=== PATIENT | male | born 1970 | race African-American/Black ===

== ENCOUNTER 2023-08-11 12:46 | Inpatient (IN) | payer OTHER ==
[2023-08-11 13:57] VITALS: BMI 22.3
[2023-08-11] MEDS ORDERED: MAG HYDROX/AL HYDROX/SIMETH 30 ML UNIT-DOSE CUP PO PRN (14:51)
[2023-08-11] MEDS ORDERED: BISMUTH SUBSALICYLATE 524 MG/30 ML PO PRN (14:51)
[2023-08-11] MEDS ORDERED: NALOXONE HCL (KLOXXADO) 8 MG SPRAY NS PRN (14:51)
[2023-08-11] MEDS ORDERED: IBUPROFEN 400 MG TABLET (FP) PO PRN (14:51)
[2023-08-11] MEDS ORDERED: DICYCLOMINE HCL 10 MG CAPSULE PO PRN (14:51)
[2023-08-11] MEDS ORDERED: ONDANSETRON *ODT* 4 MG TABLET SL PRN (14:51)
[2023-08-11] MEDS ORDERED: ACETAMINOPHEN 325 MG TABLET (FP) PO PRN (14:51)
[2023-08-11] MEDS ORDERED: BENZONATATE 200 MG CAPSULE PO PRN (14:51)
[2023-08-11] MEDS ORDERED: NALOXONE HCL 0.4 MG/ML VIAL IM PRN (14:51)
[2023-08-11] MEDS ORDERED: POLYETHYLENE GLYCOL (HEALTHYLAX) 3350 17 GM PACKET PO PRN (14:51)
[2023-08-11] MEDS ORDERED: IBUPROFEN 600 MG TABLET (FP) PO PRN (14:51)
[2023-08-11] MEDS ORDERED: guaiFENesin 600 MG TABLET.ER (FP) PO PRN (14:51)
[2023-08-11] MEDS ORDERED: LOPERAMIDE HCL 2 MG CAPSULE PO PRN (14:51)
[2023-08-11] MEDS ORDERED: MAGNESIUM HYDROX 2400MG/30ML ORAL SUSPENSION 30 ML CUP PO PRN (14:51)
[2023-08-11] MEDS ORDERED: BENZOCAINE/MENTHOL (CHLORASEPTIC ) LOZENGE MM PRN (14:51)
[2023-08-11] MEDS ORDERED: cloNIDine HCL 0.1 MG TABLET PO ONE (16:51)
[2023-08-11] MEDS ORDERED: cloNIDine HCL 0.1 MG TABLET ONE (16:56)
[2023-08-11] MEDS: hydrOXYzine PAMOATE 25 MG CAPSULE (FP) PO PRN (18:17)
[2023-08-11] MEDS: METHOCARBAMOL 500 MG TABLET PO PRN (18:17)
[2023-08-11] MEDS: ASPIRIN 81 MG CHEWABLE TABLETS PO SCH (18:17)
[2023-08-11] MEDS: PRENATAL VITAMINS W/ FOLIC ACID TABLET (FP) PO SCH (18:25)
[2023-08-11] MEDS: NICOTINE 14 MG/24 HOURS TOPICAL PATCH TD SCH (18:25)
[2023-08-11] MEDS: CARVEDILOL 25 MG TABLET (FP) PO SCH (22:25)
[2023-08-11] MEDS: THIAMINE HCL 100 MG TABLET (FP) PO SCH (22:25)
[2023-08-11] MEDS: MELATONIN 5 MG TABLETS PO SCH (22:25)
[2023-08-11] MEDS: ATORVASTATIN CA 80 MG TABLET (FP) PO SCH (22:25)
[2023-08-12 09:23] LABS: POTASSIUM 5.3 mmol/L (3.5-5.1)
[2023-08-12 09:27] LABS: HEMATOCRIT 36.4 % (35.4-49); HEMOGLOBIN 11.5 GM/dL (11.7-16.9); MCHC 31.7 g/dl (32.0-35.9); MEAN CELL VOLUME 88.4 fl (80-96); MEAN PLT VOLUME 8.6 fl (7.5-11.1); PLATELET COUNT 227 10^3/uL (134-434); RBC 4.11 M/mm3 (4.00-5.60); RDW 19.3 % (11.9-15.9); WHITE BLOOD COUNT 7.3 K/mm3 (4.0-10.0)
[2023-08-12 09:38] LABS: ALBUMIN 3.5 g/dl (3.4-5.0)
[2023-08-12 09:39] LABS: BLOOD UREA NITROGEN 14.4 mg/dL (7-18)
[2023-08-12 09:40] LABS: CALCIUM 9.3 mg/dL (8.5-10.1)
[2023-08-12 09:41] LABS: CREATININE 1.1 mg/dL (0.55-1.3)
[2023-08-12 09:44] LABS: BILIRUBIN,TOTAL 0.8 mg/dL (0.2-1)
[2023-08-12 09:47] LABS: TOT PROT 7.1 g/dl (6.4-8.2)
[2023-08-12] MEDS: ISOSORBIDE MONONITRATE 30 MG TAB.SR.24H (FP) PO SCH (10:09)
[2023-08-12] MEDS: PRENATAL VITAMINS W/ FOLIC ACID TABLET (FP) PO SCH (10:09)
[2023-08-12] MEDS: ASPIRIN 81 MG CHEWABLE TABLETS PO SCH (10:09)
[2023-08-12] MEDS: NICOTINE 14 MG/24 HOURS TOPICAL PATCH TD SCH (10:09)
[2023-08-12] MEDS: CARVEDILOL 25 MG TABLET (FP) PO SCH ×2 (10:09→22:32)
[2023-08-12] MEDS ORDERED: SODIUM POLYSTYRENE SULFONATE 15 GM/60 ML BOTTLE PO ONE (11:23)
[2023-08-12] MEDS: METHOCARBAMOL 500 MG TABLET PO PRN (20:12)
[2023-08-12] MEDS: hydrOXYzine PAMOATE 25 MG CAPSULE (FP) PO PRN (20:13)
[2023-08-12] MEDS: THIAMINE HCL 100 MG TABLET (FP) PO SCH (22:32)
[2023-08-12] MEDS: MELATONIN 5 MG TABLETS PO SCH (22:32)
[2023-08-12] MEDS: ATORVASTATIN CA 80 MG TABLET (FP) PO SCH (22:32)
[2023-08-13] MEDS: METHOCARBAMOL 500 MG TABLET PO PRN (08:13)
[2023-08-13] MEDS: hydrOXYzine PAMOATE 25 MG CAPSULE (FP) PO PRN (08:13)
[2023-08-13] MEDS: PRENATAL VITAMINS W/ FOLIC ACID TABLET (FP) PO SCH (10:10)
[2023-08-13] MEDS: ASPIRIN 81 MG CHEWABLE TABLETS PO SCH (10:10)
[2023-08-13] MEDS: ISOSORBIDE MONONITRATE 30 MG TAB.SR.24H (FP) PO SCH (10:10)
[2023-08-13] MEDS: CARVEDILOL 25 MG TABLET (FP) PO SCH ×2 (10:10→22:35)
[2023-08-13] MEDS: NICOTINE 14 MG/24 HOURS TOPICAL PATCH TD SCH (10:11)
[2023-08-13] MEDS ORDERED: cloNIDine HCL 0.1 MG TABLET PO ONE (11:26)
[2023-08-13] MEDS: ATORVASTATIN CA 80 MG TABLET (FP) PO SCH (22:34)
[2023-08-13] MEDS: THIAMINE HCL 100 MG TABLET (FP) PO SCH (22:35)
[2023-08-13] MEDS: MELATONIN 5 MG TABLETS PO SCH (22:35)
[2023-08-14] MEDS: CARVEDILOL 25 MG TABLET (FP) PO SCH (10:30)
[2023-08-14] MEDS: ISOSORBIDE MONONITRATE 30 MG TAB.SR.24H (FP) PO SCH (10:30)
[2023-08-14] MEDS: NICOTINE 14 MG/24 HOURS TOPICAL PATCH TD SCH (10:30)
[2023-08-14] MEDS: ASPIRIN 81 MG CHEWABLE TABLETS PO SCH (10:30)
[2023-08-14] MEDS: PRENATAL VITAMINS W/ FOLIC ACID TABLET (FP) PO SCH (10:30)
[2023-08-14 13:17] VITALS: BP 158/92; PULSE 52; RESP 18; TEMP 98.6
== END 2023-08-14 14:06 | disposition other institution (70) | DRG 775 ==
LOC: YASAS 12:46 → Y3N 17:11
PROVIDERS: ADMIT Allergy & Immunology; ATTEND Surgery
PROC: HZ2ZZZZ Detoxification Services for Substance Abuse Treatment (ICD-10-PCS; principal; 2023-08-11)
DX: F10.20 Alcohol dependence, uncomplicated (principal); F17.210 Nicotine dependence, cigarettes, uncomplicated; E87.5 Hyperkalemia; E78.5 Hyperlipidemia, unspecified; I25.10 Atherosclerotic heart disease of native coronary artery without angina pectoris; I10 Essential (primary) hypertension; I25.2 Old myocardial infarction; Z95.5 Presence of coronary angioplasty implant and graft
CPT/HCPCS: 36415; 80053; 84132; 85027; 86780; 87635